=== PATIENT | male | born 1985 | race African-American/Black ===

== ENCOUNTER → 2019-11-30 07:32 | Outpatient (CLI) | payer OTHER, SELFPAY ==
--- NOTE | 2019-11-30 07:55 | DI.ECHO.S_ITS ---
Echocardiogram Report + + :Name: ZACHARY SHAFFER Study Date: 11/30/2019 Height: 72 in : :[facility] Weight: 250 lb : : Gender: Male BSA: 2.3 m2 : :: 1985 Age: 34 yrs BP: 134/74 mmHg: :Reason For Study: CHEST PAIN : :Ordering Physician: CATRACHITO, : :MESERET Performed By: Annetta Kamara : :Referring: MESERET WINSTON : + + Interpretation Summary The ejection fraction is estimated to be 60-65%. There is mild tricuspid regurgitation. The right ventricular systolic pressure is estimated to be at least 25 mmHg based on an estimated right atrial pressure of 3 mm Hg. Procedure: A two-dimensional transthoracic echocardiogram with color flow and Doppler was performed. The study quality was technically adequate. There is no prior echocardiogram noted for this patient. The patient was in sinus rhythm with heart rates between 70-85 bpm during the exam. Left Ventricle: The left ventricle is normal in size and wall thickness. The ejection fraction is estimated to be 60-65%. Left ventricular wall motion is normal. Diastolic parameters suggest probable normal left ventricular diastolic function and normal filling pressures. Right Ventricle: The right ventricle is normal in size and function. Atria: The left atrial size is normal. Right atrial size is normal. There is no Doppler evidence for an interatrial shunt. Mitral Valve: The mitral valve is normal in structure and function. There is trace mitral regurgitation. Aortic Valve: The aortic valve is trileaflet. The aortic valve opens well. There is no aortic valve stenosis. No aortic regurgitation is present. Tricuspid Valve: The tricuspid valve is normal in structure and function. The right ventricular systolic pressure is estimated to be at least 25 mmHg based on an estimated right atrial pressure of 3 mm Hg. There is mild tricuspid regurgitation. Pulmonic Valve: The pulmonic valve leaflets are thin and pliable; valve motion is normal. There is no pulmonic valvular regurgitation. Great Vessels: The aortic root is normal size. The ascending aorta is normal in size. The IVC is of normal diameter and collapses greater than 50% with a sniff. This suggests a low right atrial pressure of 3 mm Hg. Pericardium/ Pleura There is no pericardial effusion. There is no pleural effusion. MMode/2D Measurements & Calculations LVIDd: 4.9 cm LVOT diam: 2.3 cm LVIDs: 3.1 cm Ao root diam: 3.1 cm FS: 35.3 % asc Aorta Diam: 2.9 cm EPSS: 0.44 cm IVSd: 0.94 cm LVPWd: 0.93 cm LV moya. diameter/BSA (cm/m^2): 2.1 LV sys. diameter/BSA (cm/m^2): 1.3 LA A2 area: 19.2 cm2 RA long axis: 5.2 cm LA A4 area: 17.4 cm2 RA area: 20.6 cm2 LA length (vol): 5.0 cm RA vol: 69.1 ml LA vol: 56.3 ml RA : 29.5 ml/m2 LA vol index: 24.0 ml/m2 IVC diam: 1.9 cm RVD1 (basal): 3.4 cm TAPSE: 2.6 cm Doppler Measurements & Calculations Ao V2 max: 123.1 cm/sec LVOT Max Praveen: 84.2 cm/sec Ao V2 mean: 83.5 cm/sec LV V1 max P.8 mmHg Ao max P.1 mmHg LV V1 VTI: 14.9 cm Ao mean P.2 mmHg DIALLO(I,D): 2.4 cm2 Ao V2 VTI: 25.7 cm DIALLO(V,D): 2.8 cm2 sev ratio: 0.58 DIALLO indexed to BSA (cm^2/m^2): 1.0 MV E max praveen: 54.4 cm/sec TR max praveen: 232.9 cm/sec MV A max praveen: 55.2 cm/sec TR max P.8 mmHg MV E/A: 0.98 PA V2 max: 86.4 cm/sec Med Peak E' Praveen: 8.5 cm/sec PA V2 mean: 56.6 cm/sec E/E' med: 6.4 PA mean P.5 mmHg Lat Peak E' Praveen: 10.6 cm/sec PA pr(Accel): 22.5 mmHg E/E' lat: 5.1 E/e' average: 5.8 MV dec time: 0.20 sec SV(LVOT): 61.8 ml Reading Physician:01:23 PM
== END ==
PROVIDERS: Referring Provider Physician Assistant; Visit Provider Physician Assistant
DX: I07.1 Rheumatic tricuspid insufficiency (principal); R07.9 Chest pain, unspecified
CPT/HCPCS: 93306